=== PATIENT | male | born 1965 | race Caucasian/White ===

== ENCOUNTER 2018-09-19 10:25 | Emergency (ER) | payer BC, MEDICARE, OTHER ==
[2018-09-19 11:40] VITALS: BP 135/80
--- NOTE | 2018-09-19 12:11 | UC ---
Back Pain HPI - HPI Summary HPI Summary: 53-year-old male comes in with a chief complaint of low back pain. Patient believes the pain started when he was pushing his lawnmower about a week ago. Pains in the low back it's spreads across bilaterally. Feels like it's locked up. No pain radiating down into the buttocks or the legs. Occasionally patient reports some tingling. No weakness. No numbness at this time. The difficulty controlling urine or bowels. Took some ibuprofen which did help decrease the pain some. Movement makes the pain worse. No abdominal pain. No shortness of breath. - History of Current Complaint Chief Complaint: UCBackPain Stated Complaint: BACK INJURY Time Seen by Provider: 09/19/18 11:48 Pain Intensity: 8 - Allergies/Home Medications Allergies/Adverse Reactions: Allergies Allergy/AdvReac Type Severity Reaction Status Date / Time No Known Allergies Allergy Verified 09/19/18 11:25 Home Medications: Home Medications Atorvastatin* [Lipitor*] 10 mg PO DAILY 09/19/18 [History Confirmed 09/19/18] Citalopram TAB* [CeleXA TAB*] 40 mg PO DAILY 09/19/18 [History Confirmed ] Ibuprofen TAB* [Advil TAB*] 400 mg PO Q6H PRN 09/19/18 [History Confirmed ] Lidocain Patch, Otc PRN 09/19/18 [History] Lisinopril/HCTZ 20/12.5(NF) [Zestoretic 20/12.5(NF)] 1 tab PO DAILY 09/19/18 [ History Confirmed 09/19/18] Meloxicam [Mobic] 7.5 mg PO DAILY 09/19/18 [History Confirmed 09/19/18] PMH/Surg Hx/FS Hx/Imm Hx Previously Healthy: Yes Endocrine History: Dyslipidemia Cardiovascular History: Hypertension - Surgical History Surgical History: Yes Surgery Procedure, Year, and Place: CERVICAL DISC NERVE COMPRESSION WITH HARDWEAR - Family History Known Family History: Positive: Non-Contributory - Social History Alcohol Use: Weekly Substance Use Type: Marijuana Substance Use Comment - Amount & Last Used: DAILY Smoking Status (MU): Former Smoker Type: Cigarettes When Did the Patient Quit Smoking/Using Tobacco: 2003 Review of Systems All Other Systems Reviewed And Are Negative: Yes Constitutional: Positive: Negative Skin: Positive: Negative Eyes: Positive: Negative ENT: Positive: Negative Respiratory: Positive: Negative Cardiovascular: Positive: Negative Gastrointestinal: Positive: Negative Motor: Positive: Negative Neurovascular: Positive: Negative Musculoskeletal: Positive: Other: - SEE HPI Neurological: Positive: Other - SEE HPI Psychological: Positive: Negative Is Patient Immunocompromised?: No Physical Exam Triage Information Reviewed: Yes Appearance: Well-Appearing, Well-Nourished, Pain Distress - MILD WITH ROM Vital Signs: Initial Vital Signs Temp 98.1 F 09/19/18 11:29 Pulse 63 09/19/18 11:29 Resp 16 09/19/18 11:29 BP 135/80 09/19/18 11:29 Pulse Ox 98 09/19/18 11:29 Vital Signs Reviewed: Yes Eye Exam: Normal Eyes: Positive: Conjunctiva Clear Neck: Positive: Supple Respiratory: Positive: Lungs clear, Normal breath sounds, No respiratory distress Abdomen Description: Positive: Nontender, Soft Musculoskeletal: Positive: Other: - Tender to palpation low back. Legs and feet have full range of motion full-strength no sensation deficit. Pain in back does increase with flexion bilaterally. Neurological Exam: Normal Neurological: Positive: Muscle Tone Normal Psychological Exam: Normal Psychological: Positive: Age Appropriate Behavior Skin Exam: Normal Back Pain Course/Dx - Differential Dx/Diagnosis Provider Diagnosis: Low back pain Discharge - Sign-Out/Discharge Documenting (check all that apply): Patient Departure All imaging exams completed and their final reports reviewed: No Studies - Discharge Plan Condition: Stable Disposition: HOME Prescriptions: Cyclobenzaprine TAB* [Flexeril 10 MG TAB*] 10 mg PO TID PRN #15 tab MDD 3 PRN Reason: Pain HYDROcodone/ACETAMIN 5-325 MG* [[place] 5-325 TAB*] 1 tab PO Q4H PRN #30 tab MDD 6 PRN Reason: Pain Ibuprofen TAB* [Motrin TAB* 600 MG] 600 mg PO Q6H PRN #30 tab PRN Reason: Pain Patient Education Materials: Acute Low Back Pain (ED), Lower Back Exercises (ED ) Referrals: Josue Almendarez [Primary Care Provider] - Additional Instructions: FOLLOW UP WITH YOUR DOCTOR IF NOT COMPLETELY IMPROVED. GET REEVALUATED SOONER IF YOUR CONDITION WORSENS; WEAKNESS, NUMBNESS, DIFFICULTY CONTROLLING BOWEL OR BLADDER OR ANY QUESTIONS OR CONCERNS. - Billing Disposition and Condition Condition: STABLE Disposition: Home
== END 2018-09-19 12:17 | disposition home or self-care (01) ==
LOC: UCCORT 10:25
DX: M54.5 Low back pain (principal); I10 Essential (primary) hypertension; Z87.891 Personal history of nicotine dependence; Z79.899 Other long term (current) drug therapy
CPT/HCPCS: 99212; G0463